=== PATIENT | female | born 1955 | race Asian ===

== ENCOUNTER 2023-08-20 08:04 | Day surgery (SDC) | payer OTHER, BC ==
[2023-08-15 15:21] VITALS: BMI 26.3
[2023-08-20 08:20] VITALS: RESP 18
[2023-08-20 10:05] VITALS: TEMP 97
[2023-08-20 10:21] VITALS: BP 108/59; PULSE 62
== END 2023-08-20 10:20 | disposition home or self-care (01) ==
LOC: FASU-ENDO 08:04
PROVIDERS: ATTEND Internal Medicine Gastroenterology
PROC: 0DB98ZX Excision of Duodenum, Via Natural or Artificial Opening Endoscopic, Diagnostic (ICD-10-PCS; 2023-08-20)
PROC: 0DB68ZX Excision of Stomach, Via Natural or Artificial Opening Endoscopic, Diagnostic (ICD-10-PCS; 2023-08-20)
PROC: 0DJD8ZZ Inspection of Lower Intestinal Tract, Via Natural or Artificial Opening Endoscopic (ICD-10-PCS; principal; 2023-08-20 09:05)
DX: Z12.11 Encounter for screening for malignant neoplasm of colon (principal); K29.50 Unspecified chronic gastritis without bleeding; K29.80 Duodenitis without bleeding; K44.9 Diaphragmatic hernia without obstruction or gangrene; R12 Heartburn; B96.81 Helicobacter pylori [H. pylori] as the cause of diseases classified elsewhere
CPT/HCPCS: 43239; G0121; 88305-TC; 88342-TC